=== PATIENT | male | born 1985 | race Caucasian/White ===

== ENCOUNTER 2016-08-15 18:15 | Emergency (ER) | payer OTHER ==
--- NOTE | 2016-08-15 19:14 | RAD ---
CHEST 2 VIEWS HISTORY: Cough. Frontal and lateral chest radiographs dated 08/15/2016. COMPARISON: None. FINDINGS: FOCAL AIRSPACE OPACITY: No gross airspace consolidation. PLEURAL EFFUSION: None. CARDIOMEDIASTINAL SILHOUETTE: Nonenlarged. PNEUMOTHORAX: None identified. OSSEOUS STRUCTURES: No grossly destructive lesions. IMPRESSION: No acute cardiopulmonary process noted.
== END 2016-08-15 18:30 | disposition home or self-care (01) ==
LOC: ED 18:15
DX: J06.9 Acute upper respiratory infection, unspecified (principal); R05 Cough; F17.220 Nicotine dependence, chewing tobacco, uncomplicated